=== PATIENT | female | born 1970 | race Caucasian/White ===

== ENCOUNTER 2018-09-30 06:21 | Inpatient (IN) ==
[2018-09-30] MEDS ORDERED: CeFAZolin Syr 2,000MG/20 ML 2,000 MG/20 ML SYRINGE IVPB ONE (06:39)
[2018-09-30] MEDS ORDERED: Albuterol 2.5 MG/3 ML NEBULIZER IH ONE (06:39)
[2018-09-30] MEDS ORDERED: Ringers Solution, Lactated 1,000 ML IVC SCH ×2 (06:45→11:12)
[2018-09-30] MEDS ORDERED: Dexamethasone 4 MG/ML VIAL ONE (07:08)
[2018-09-30] MEDS ORDERED: *HR* FentaNYL (PF) 100 MCG/2 ML VIAL ONE (07:08)
[2018-09-30] MEDS ORDERED: Ondansetron 4 MG/2 ML VIAL ONE (07:08)
[2018-09-30] MEDS ORDERED: *HR* Succinylcholine 200 MG/10 ML VIAL IVP ONE (07:08)
[2018-09-30] MEDS ORDERED: *HR* Midazolam HCl 2 MG/2 ML VIAL ONE (07:08)
[2018-09-30] MEDS ORDERED: Lidocaine -MPF 2% 2 ML VIAL ONE (07:08)
[2018-09-30] MEDS ORDERED: *HR* Propofol 200 MG/20 ML VIAL IVP ONE (07:09)
--- NOTE | 2018-09-30 07:29 | Anesthesia Evaluation PreOp ---
Date of Encounter: 09/30/18 Time of Encounter: 07:20 - Past History Planned Operation: Total abd. 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 Other Medical History: Denies Any Significant HX Anesthesia History: No Prior Anesthetic Complications, Past Anesthesia Test: Negative Alcohol Use: occasionally Drug use: none Medications and Allergies Ibuprofen [Motrin] 600 mg PO Q6HR PRN #60 tab 06/23/18 [Rx] Allergy/AdvReac Type Severity Reaction Status Date / Time No Known Allergies Allergy Verified 06/16/18 10:05 - Meds/Allergy Pre-op Review Medications Reviewed: Yes Allergies Reviewed: Yes Beta Blockers on Current Med List: No Anesthesia Exam Selected Entries 09/30/18 06:54 Temperature 98.6 F Pulse Rate 78 Respiratory Rate 18 Blood Pressure 104/72 O2 Sat by Pulse Oximetry 99 Weight: 62 kg NPO (# of Hours): over 8 hours - HEENT Pupil (Motor): Pupils equal Mallampati: I Denture Type: Upper: Complete Oral Opening: Greater than 3 - Cardiac Rhythm: Regular Murmur: None - Pulmonary Breath Sounds: bilateral Clear Respiratory Effort: Symmetrical Anesthesia Assess/Plan ASA Score: 2 Level of consciousness: Anxious (very anxious, quite tearful) Anesthetic Plan: General Monitoring Plan: Standard Monitors Recovery Plan: PACU (Discussed GA, risks. Agreed to proceed.)
[2018-09-30] MEDS ORDERED: Acetaminophen IV 1,000 MG/100 ML INFUS..BTL IVPB ONE (07:30)
[2018-09-30] MEDS ORDERED: diazePAM 5 MG TABLET PO ONE (07:32)
[2018-09-30] MEDS: diazePAM 5 MG TABLET PO ONE (07:32)
[2018-09-30] MEDS ORDERED: Ondansetron 4 MG/2 ML VIAL IVP ONE (07:33)
[2018-09-30] MEDS ORDERED: Ketorolac 30 MG/ML VIAL IVP ONE (07:33)
[2018-09-30] MEDS ORDERED: *HR* Morphine 2 MG/ML SYRINGE IVP PRN (07:33)
[2018-09-30] MEDS ORDERED: *HR* OxyCODONE Immed Rel 5 MG TABLET PO PRN (07:33)
[2018-09-30] MEDS ORDERED: *HR* Promethazine 25 MG/ML VIAL IVP PRN (07:33)
[2018-09-30] MEDS ORDERED: *HR* Midazolam HCl 2 MG/2 ML VIAL IVP PRN (07:33)
--- NOTE | 2018-09-30 07:45 | History & Physical Report ---
Date of Encounter: 09/30/18 Time of Encounter: 07:43 24 Hour HP Update - Instructions Instructions: If the History and Physical is less than 30 days old and was completed prior to A.M. admission and or procedure and has NOT been updated on calendar day of procedure please complete this update prior to performing procedure. - Update Patient reports changes in Medical Condition: No Changes in examination, assessment, or condition: No Changes in Medication: No Preop tests/diagnostics Reviewed: Yes Surgery Remains Indicated: Yes Consent for Planned Operative Procedure(s) Verified: Yes - Pre-Operative Checklist Preoperative Checklist Indicated: Yes Prophylactic Antibiotic Ordered: Yes Home Medications Include Beta Sonny: No Beta Sonny Taken Today (Day of Surgery): No Beta Sonny Taken Yesterday (Day Prior to Surgery): No Is VTE Prophylaxis Indicated?: Yes
[2018-09-30] MEDS ORDERED: *HR* Morphine 10 MG/ML VIAL ONE (09:30)
--- NOTE | 2018-09-30 09:58 | OB/GYN Procedure Note ---
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 An incision was made into the abdomen down through the subcutaneous tissue, muscular fascia and peritoneum. Once inside the abdominal cavity, the pelvic cavity was exposed with 3 lap sponges. The uterus was then identified and grasped on the fundus with a single-toothed tenaculum with upward traction. The fibroid was also identified and peeled off the sidewall(it was adherent). The round ligaments on either side were identified, clamped and ligated with the Ligasure device. This allowed me to create a bladder flap by both blunt and sharp dissection. Both fallopian tubes were isolated, clamped and ligated with the Ligasure device. The left ovarian ligament was isolated through the broad ligament from the uterine body, clamped and ligated with the Ligasure. After further dissection of the bladder flap anteriorly, the uterine vessels on either side were clamped and ligated with the Ligasure down to the utero-cervico junction. Norman clamps were then placed at each isthmic portion of the cervical body junction where the uterine arteries adjoined the uterus. These were clamped, ligated and divided using #0 Vicryl suture. The remainder of the uterus was then removed by the [id number] technique using #0 Vicryl on all major pedicles. With removal of the uterus, the vaginal cuff was closed in the usual manner. Hemostasis was then inspected and secured throughout the entire area. The left ovary was left in situ. The lap sponges were then removed. The patient tolerated the operation nicely. There were no complications associated with this surgical procedure to this point. The sponge count was correct times 2 at this time. The Jose catheter was inspected and clear urine was noted. Having removed all in struments and packs, we then began closure of the abdomen. The fascia was closed with #0 Vicryl in a running continuous manner and the subcutaneous tissue was also closed with #3-0 Vicryl. The skin was closed with #4-0 vicryl. The patient tolerated the operation nicely and was taken to the Recovery Room in good condition.
--- NOTE | 2018-09-30 10:59 | Anesthesia Evaluation Post Op ---
Date of Encounter: 09/30/18 Time of Encounter: 10:58 - Discharge PostOp Status: Transfer Patient to floor (Patient's vital signs have been reviewed. Patient is stable postoperatively and has adequately recovered from anesthesia. Patient is determined to have stable airway patency and respiratory function including respiratory rate and oxygen saturation. Patient has a stable heart rate, blood pressure and adequate hydration. Patients mental status is acceptable. Patients temperature is appropriate. Pain and nausea are adequately controlled.)
[2018-09-30] MEDS ORDERED: Ondansetron 4 MG/2 ML VIAL IVP PRN (11:12)
[2018-09-30] MEDS ORDERED: Naloxone 0.4 MG/ML INJ IVP PRN (11:12)
[2018-09-30] MEDS: *HR* OxyCODONE/APAP 5/325 TABLET PO PRN (18:39)
[2018-10-01] MEDS: *HR* OxyCODONE/APAP 5/325 TABLET PO PRN ×4 (01:57→19:08)
[2018-10-01] MEDS: Ibuprofen 600 MG TABLET PO PRN ×3 (01:57→13:51)
[2018-10-01 06:20] LABS: Basophils % 0.3 %; Eosinophils % 0.3 %; Hematocrit 34.1 % (35.3-44.9); Hemoglobin 11.2 g/dL (11.5-15.4); Immature Granulocytes % 0.3 % (0-4); Lymphocytes # 3.3 K/mcL (0.6-4.6); Lymphocytes % 23.6 %; Mean Corpuscular HGB Conc 32.8 g/dL (31.6-35.5); Mean Corpuscular Hemoglobin 30.2 pg (28.0-33.3); Mean Corpuscular Volume 91.9 fL (83.0-100.0); Mean Platelet Volume 10.8 fL (9.4-12.4); Monocytes # 0.6 K/mcL (0.0-1.3); Monocytes % 4.3 %; Platelet Count 253 K/mcL (140-400); Red Blood Count 3.71 M/mcL (3.82-4.97); Red Cell Distribution Width 12.7 % (11.5-14.5); Segmented Neutrophils % 71.2 %
--- NOTE | 2018-10-01 09:16 | OB/GYN Progress Note ---
Date of Encounter: 10/02/18 Time of Encounter: 09:09 - Assessment and Plan (1) H/O: hysterectomy Current Visit: Yes Status: Acute 48 y/o s/p PAUL/BS for fibroid uterus, POD#1, patient is doing well, will stay 1 more day for recovery Subjective - Subjective Patient reports: appetite normal, voiding normally, pain well controlled, ambulating normally Objective - Vital Signs Latest vital signs: Vital Signs Temp Pulse Resp BP Pulse Ox 10/01/18 08:09 98.6 F 96 16 107/78 97 10/01/18 05:15 98.3 F 88 14 91/61 96 10/01/18 01:00 98.6 F 95 16 101/65 97 09/30/18 20:00 98.9 F 100 14 108/69 98 09/30/18 15:10 16 09/30/18 14:59 98.2 F 89 16 108/72 97 09/30/18 13:37 98.3 F 90 16 103/69 09/30/18 13:30 98.3 F 90 16 103/69 09/30/18 12:30 97.8 F 78 16 102/68 92 09/30/18 12:00 97.8 F 83 18 99/65 97 09/30/18 11:30 16 09/30/18 11:27 97.5 F L 77 12 99/67 95 09/30/18 11:09 98.0 F 82 16 104/70 98 09/30/18 10:59 98.0 F 79 16 101/67 98 09/30/18 10:49 75 14 104/71 98 09/30/18 10:39 80 16 97/68 97 09/30/18 10:29 97.8 F 82 16 107/68 97 09/30/18 10:19 90 14 102/66 96 09/30/18 10:09 94 16 104/65 95 09/30/18 10:04 96 16 85/70 95 09/30/18 09:59 97.2 F L 96 22 96/59 94 Intake and Output 09/30/18 10/01/18 10/01/18 23:59 07:59 15:59 Intake Total 950 / 950 300 / 300 Output Total 775 / 775 880 / 880 Balance -775 / -775 70 / 70 300 / 300 Intake: Oral 950 / 950 300 / 300 Output: Catheter 775 / 775 880 / 880 Other: Meal Breakfast Percent of Meal Consumed 25% Weight 61.779 kg Patient Weight 10/01/18 23:59 Weight 61.779 kg - I&O's I&O's: Intake & Output 09/28/18 09/29/18 09/30/18 10/01/18 23:59 23:59 23:59 23:59 Intake Total 1250 / 1250 Output Total 880 / 880 880 / 880 Balance -860 / -860 370 / 370 Weight 61.689 kg 61.779 kg - Exam Extremities: Present: normal (SCDs on) Abdomen: Present: soft Incision OB: Present: dressed (dressing will be removed later today) - Labs Labs: Abnormal lab results WBC 14.1 K/mcL (4.3-11.1) H 10/01/18 06:02 RBC 3.71 M/mcL (3.82-4.97) L 10/01/18 06:02 Hgb 11.2 g/dL (11.5-15.4) L 10/01/18 06:02 Hct 34.1 % (35.3-44.9) L 10/01/18 06:02 Neutrophils # 10.0 K/mcL (1.6-8.9) H 10/01/18 06:02 Consult Discharge Plan - Plan Referrals: Ab Oakley [Primary Care Provider] -
[2018-10-01] MEDS: Ondansetron ODT 4 MG TAB.RAPDIS SL PRN ×2 (10:50→17:02)
[2018-10-01] MEDS ORDERED: Simethicone 80 MG TAB.CHEW PO PRN (18:43)
[2018-10-02] MEDS: *HR* OxyCODONE/APAP 5/325 TABLET PO PRN (05:09)
--- NOTE | 2018-10-02 08:16 | Discharge Summary ---
Date of Encounter: 10/02/18 Time of Encounter: 08:14 - Discharge Diagnosis (1) H/O: hysterectomy Priority: Primary Status: Acute Comments: 48 y/o s/p PAUL, BS, patient is doing well, ambulating, tolerating PO, pain is under control, ok for discharge - Discharge Medications Home Medications: No Known Home Drugs 09/30/18 [History] Allergies/Adverse Reactions: Allergy/AdvReac Type Severity Reaction Status Date / Time No Known Allergies Allergy Verified 09/30/18 08:04 Data Procedures and tests throughout hospitalization: Laboratory Tests 10/01/18 06:02 WBC 14.1 H RBC 3.71 L Hgb 11.2 L Hct 34.1 L MCV 91.9 MCH 30.2 MCHC 32.8 RDW 12.7 Plt Count 253 MPV 10.8 Immature Gran % 0.3 Seg Neutrophils % 71.2 Lymphocytes % 23.6 Monocytes % 4.3 Eosinophils % 0.3 Basophils % 0.3 Neutrophils # 10.0 H Lymphocytes # 3.3 Monocytes # 0.6 Eosinophils # 0.0 Basophils # 0.0 Date of admission: 09/30/18 11:08 Primary care physician: Ab Oakley - Patient Status Disposition: Home, Self-Care Condition: Good Functional capacity at discharge: independent ambulation Overall status at discharge: patient is progressing back to baseline - Discharge Instructions Follow Up With: Ab Oakley [Primary Care Provider] - Hospital 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
[2018-10-02 08:22] VITALS: BP 107/72
== END 2018-10-02 09:57 | disposition home or self-care (01) | DRG 519 ==
LOC: SAMDAY 06:21 → 1NENUOBS 11:08
PROVIDERS: ADMIT Student in an Organized Health Care Education/Training Program; ATTEND Student in an Organized Health Care Education/Training Program